=== PATIENT | male | born 1995 | race Hispanic/Latino ===

== ENCOUNTER 2018-09-02 22:10 | Emergency (ER) | payer OTHER ==
[2018-09-02] MEDS ORDERED: Fluorescein Opthalmic Strip ONE (22:19)
== END 2018-09-02 22:40 | disposition home or self-care (01) ==
LOC: SCSER 22:10
DX: S05.02XA Injury of conjunctiva and corneal abrasion without foreign body, left eye, initial encounter (principal); L03.213 Periorbital cellulitis; H00.015 Hordeolum externum left lower eyelid; F17.210 Nicotine dependence, cigarettes, uncomplicated; Z71.6 Tobacco abuse counseling; W22.8XXA Striking against or struck by other objects, initial encounter
CPT/HCPCS: 99406